=== PATIENT | male | born 1960 | race Hispanic/Latino ===

== ENCOUNTER 2017-04-18 02:22 | Emergency (ER) | payer MEDICARE ==
[2017-04-18 02:23] VITALS: BMI 31.7
[2017-04-18 02:31] VITALS: RESP 16; TEMP 97.5
[2017-04-18 02:40] VITALS: BP 138/46; PULSE 87; O2SAT 97
--- NOTE | 2017-04-18 03:18 | ED PDOC ---
HPI: General Adult Time Seen by Provider: 04/18/17 02:37 Chief Complaint (Nursing): Shortness Of Breath Chief Complaint (Provider): Shortness Of Breath History Per: Patient History/Exam Limitations: no limitations Onset/Duration Of Symptoms: Hrs Have you had recent travel within the past 21 days to any of the following countries: [place], [place], [place] or [place]?: No Current Symptoms Are (Timing): Still Present Severity: Mild Additional Complaint(s): 57 y/o male presenting to the ED with shortness of breath and anxiety. Patient was brought in by police and he is currently under arrest. 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 He denies chest pain, suicidal ideation or homicidal ideation. Past Medical History Reviewed: Historical Data, Nursing Documentation, Vital Signs Vital Signs: Last Vital Signs Temp 97.5 F L 04/18/17 02:29 Pulse 87 04/18/17 02:40 Resp 16 04/18/17 02:40 BP 138/46 L 04/18/17 02:40 Pulse Ox 97 04/18/17 03:20 - Medical History PMH: Asthma, HTN, TIA (MINI-STROKE) Denies: Alzheimer's Disease, Bronchitis, Cardia Arrhythmia, CHF, COPD, Dementia, Emphysema, Fibromyalgia, Hypercholesterolemia, Hyperthyroidism, Hypothyroidism, Migraine, Mitral Valve Prolapse, Multiple Sclerosis, Parkinson' s Disease, Peripheral Edema, Pneumonia, Pulmonary Embolism, Chronic Kidney Disease, Seizures, Sleep Apnea - Surgical History Surgical History: No Surg Hx - Family History Family History: States: Unknown Family Hx - Immunization History Hx Tetanus Toxoid Vaccination: Yes - Home Medications Home Medications: Ambulatory Orders Medication Instructions Recorded Acetaminophen/Oxycodone Hydr 5 - 325 mg PO PRN PRN 06/13/14 [Oxycodone/APAP 325 mg-5 mg] Carvedilol [Coreg] 6.25 mg PO BID 06/13/14 Clopidogrel [Plavix] 75 mg PO DAILY 06/13/14 GlipiZIDE SR [Glucotrol XL] 5 mg PO DAILY 06/13/14 MetFORMIN [glucoPHAGE] 1,000 mg PO BID 06/13/14 Simvastatin 40 mg PO DAILY 06/13/14 Clindamycin [Cleocin] 300 mg PO TID #21 cap 07/10/14 Clindamycin [Cleocin] 300 mg PO TID 5 Days 04/21/15 - Allergies Allergies/Adverse Reactions: Allergies Allergy/AdvReac Type Severity Reaction Status Date / Time Penicillins Allergy ANAPHYLAXIS Verified 04/18/17 02:29 Review of Systems ROS Statement: Except As Marked, All Systems Reviewed And Found Negative Cardiovascular: Negative for: Chest Pain Respiratory: Positive for: Shortness of Breath Psych: Positive for: Anxiety ((-)Suicidal or Homicidal Ideation) Physical Exam - Reviewed Nursing Documentation Reviewed: Yes Vital Signs Reviewed: Yes - Physical Exam Appears: Positive for: Non-toxic, No Acute Distress Head Exam: Positive for: ATRAUMATIC, NORMAL INSPECTION, NORMOCEPHALIC Skin: Positive for: Normal Color, Warm, Dry Cardiovascular/Chest: Positive for: Regular Rate, Rhythm. Negative for: Murmur Respiratory: Positive for: Normal Breath Sounds. Negative for: Wheezing, Respiratory Distress Neurologic/Psych: Positive for: Alert, Oriented, Mood/Affect ((+)Appear Anxious) . Negative for: Motor/Sensory Deficits - ECG O2 Sat by Pulse Oximetry: 97 (RA) Pulse Ox Interpretation: Normal Medical Decision Making Medical Decision Making: Time: 0256 Initial impression: Anxiety Initial plan: --LORAZEPAM 0.5MG PO ONCE 330 Pt. stable for incarceration Scribe Attestation: Documented by Meghan Colin, acting as a scribe for Shilo Salas MD. Scribe Attestation: All medical record entries made by the Scribe were at my direction and personally dictated by me. I have reviewed the chart and agree that the record accurately reflects my personal performance of the history, physical exam, medical decision making, and the department course for this patient. I have also personally directed, reviewed, and agree with the discharge instructions and disposition. Disposition - Clinical Impression Clinical Impression: Anxiety - Disposition Referrals: [facility], [facility] [Outside] Disposition Time: 03:30 Condition: STABLE Additional Instructions: Patient is medically and psychiatrically cleared for incarceration. Instructions: Anxiety (ED) Forms: [employer] (Mongolian)
== END 2017-04-18 04:11 | disposition home or self-care (01) ==
LOC: H.ER 02:22
DX: F41.9 Anxiety disorder, unspecified (principal)

== ENCOUNTER 2018-11-09 11:02 | Observation (INO) | payer MEDICARE ==
[2018-11-09 11:02] VITALS: BMI 31.7
[2018-11-09] MEDS ORDERED: Sodium Chloride 0.9% 1,000 ML IV STA ×2 (12:15→15:43)
--- NOTE | 2018-11-09 12:39 | ED PDOC ---
HPI: General Adult Time Seen by Provider: 11/09/18 11:40 Chief Complaint (Nursing): Dizziness/Lightheaded Chief Complaint (Provider): Dizziness History Per: Patient History/Exam Limitations: no limitations Onset/Duration Of Symptoms: Days, Intermittent Episodes Current Symptoms Are (Timing): Better Additional Complaint(s): 58 year old diabetic male with history of anxiety presents to the ED for an evaluation of dizziness onset last night. Patient reports of dizziness onset for 3 to 4 months and states of the room spinning ; no floaters or blurry vision. His sugar here is greater than 500 and on review of system he notes he has frequent urination. He denies fever, vomiting, diarrhea, cough. Currently, he states he feels somewhat better in the ED. He was sent from the clinic for evaluation in the ER. He states he is only taking pills for diabetes, not insulin. he had been on insulin a year ago, but never really followed up. PMD: Hamilton Tripathi Past Medical History Reviewed: Historical Data, Nursing Documentation, Vital Signs Vital Signs: Last Vital Signs Temp 97.8 F 11/09/18 11:12 Pulse 105 H 11/09/18 11:12 Resp 18 11/09/18 11:12 BP 136/88 11/09/18 11:12 Pulse Ox 100 11/09/18 11:12 - Medical History PMH: Asthma, Diabetes, HTN, TIA (MINI-STROKE) Denies: Alzheimer's Disease, Bronchitis, Cardia Arrhythmia, CHF, COPD, Dementia, Emphysema, Fibromyalgia, Hypercholesterolemia, Hyperthyroidism, Hypothyroidism, Migraine, Mitral Valve Prolapse, Multiple Sclerosis, Parkinson's Disease, Peripheral Edema, Pneumonia, Pulmonary Embolism, Chronic Kidney Disease, Seizures, Sleep Apnea - Surgical History Surgical History: No Surg Hx - Family History Family History: States: Unknown Family Hx - Social History Current smoker - smoking cessation education provided: No Alcohol: None 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) - Immunization History Hx Tetanus Toxoid Vaccination: Yes - Home Medications Home Medications: Ambulatory Orders Medication Instructions Recorded RX: metFORMIN [glucOPHAGE] 500 mg PO BID #20 tab 11/09/18 - Allergies Allergies/Adverse Reactions: Allergies Allergy/AdvReac Type Severity Reaction Status Date / Time Penicillins Allergy ANAPHYLAXIS Verified 04/18/17 02:29 Review of Systems ROS Statement: Except As Marked, All Systems Reviewed And Found Negative Constitutional: Negative for: Fever Gastrointestinal: Negative for: Vomiting, Diarrhea Genitourinary Male: Positive for: Frequency Neurological: Positive for: Dizziness Psych: Positive for: Depression. Negative for: Suicidal ideation, Other (homicidal ideation) Physical Exam - Reviewed Nursing Documentation Reviewed: Yes Vital Signs Reviewed: Yes - Physical Exam Appears: Positive for: Non-toxic, No Acute Distress Head Exam: Positive for: ATRAUMATIC, NORMAL INSPECTION, NORMOCEPHALIC Skin: Positive for: Normal Color, Warm, Dry Eye Exam: Positive for: EOMI, Normal appearance, PERRL ENT: Positive for: Normal ENT Inspection Neck: Positive for: Normal, Painless ROM Cardiovascular/Chest: Positive for: Regular Rate, Rhythm. Negative for: Murmur Respiratory: Positive for: Normal Breath Sounds. Negative for: Decreased Breath Sounds, Respiratory Distress Gastrointestinal/Abdominal: Positive for: Normal Exam, Soft. Negative for: Tenderness Back: Positive for: Normal Inspection Extremity: Positive for: Normal ROM. Negative for: Tenderness, Pedal Edema, Deformity Neurologic/Psych: Positive for: Alert, Oriented (x3). Negative for: Motor/Sensory Deficits - Laboratory Results Result Diagrams: 11/09/18 12:30 11/09/18 12:30 - ECG ECG: Positive for: Interpreted By Me, Viewed By Me ECG Rhythm: Positive for: Sinus Rhythm Interpretation Of ECG: possible left atrial enlargement Rate: 100 O2 Sat by Pulse Oximetry: 100 (RA) Pulse Ox Interpretation: Normal Medical Decision Making Medical Decision Making: Time: 1214 Plan: HYPERGLYCEMIA, and DIZZINESS rule out electrolyte abnormality, infection --CMP --EKG --CBC w/ Differential --Chest two views [RAD] --Normal Saline 999 mls/hr --Urine C&S --alarm security or surveillance monitor --Urinalysis --Reevaluation EKG: normal sinus rhythm with 100bpm and possible left atrial enlargement. 1400 CXR FINDINGS: LUNGS: No active pulmonary disease. PLEURA: No significant pleural effusion identified. No pneumothorax apparent. CARDIOVASCULAR: No aortic atherosclerotic calcification present. No radiographic findings to suggest acute or significant cardiovascular disease. OSSEOUS STRUCTURES: No significant abnormalities. VISUALIZED UPPER ABDOMEN: Normal. OTHER FINDINGS: None. IMPRESSION: No active disease. No significant interval change compared to the prior examination(s). Anion GAP is 12, urine negative, CXR presents no abnormalities. [address] Sandy for symptomatic hyperglycemia. Scribe Attestation: Documented by Waldemar Santana, acting as a scribe for Claudia Bunn MD. Provider Scribe Attestation: All medical record entries made by the Scribe were at my direction and personally dictated by me. I have reviewed the chart and agree that the record accurately reflects my personal performance of the history, physical exam, medical decision making, and the department course for this patient. I have also personally directed, reviewed, and agree with the discharge instructions and disposition. Disposition - Clinical Impression Clinical Impression: Hyperglycemia - Patient ED Disposition Is Patient to be Admitted: Yes - Disposition Disposition Time: 15:46 Condition: STABLE Patient Signed Over To: Geetha Marroquin
[2018-11-09 12:57] LABS: URINE BILIRUBIN NEGATIVE (NEGATIVE); URINE BLOOD NEGATIVE (NEGATIVE); URINE CLARITY CLEAR (Clear); URINE COLOR STRAW (YELLOW); URINE GLUCOSE (UA) >=500 mg/dL (NEGATIVE); URINE LEUKOCYTE ESTERASE NEG Leu/uL (Negative); URINE PROTEIN NEGATIVE (NEGATIVE); URINE UROBILINOGEN 0.2-1.0 mg/dL (0.2-1.0)
[2018-11-09 13:00] LABS: BASO # 0.1 K/uL (0.0-0.2); BASO % 0.6 % (0.0-2.0); EOS # 0.1 K/uL (0.0-0.7); EOS % 0.9 % (0.0-4.0); HEMOGLOBIN 15.8 g/dL (12.0-18.0); LYMPH # 2.4 K/uL (1.0-4.3); LYMPH % 24.4 % (20.0-40.0); MEAN CORPUSCULAR HEMOGLOBIN 26.2 pg (27.0-31.0); MEAN CORPUSCULAR HGB CONC 32.7 g/dL (33.0-37.0); MEAN PLATELET VOLUME 10.6 fl (7.2-11.7); MONO # 0.8 K/uL (0.0-0.8); MONO % 8.2 % (0.0-10.0); NEUT # 6.4 K/uL (1.8-7.0); NEUT % 65.9 % (50.0-75.0); RBC 6.02 Mil/uL (4.40-5.90); RED CELL DISTRIBUTION WIDTH 14.5 % (11.5-14.5); WHITE BLOOD COUNT 9.8 K/uL (4.8-10.8)
[2018-11-09 13:08] LABS: ALB/GLOB RATIO 1.5 (1.0-2.1); ALBUMIN 4.2 g/dL (3.5-5.0); ALT/SGPT 28 U/L (21-72); AST/SGOT 17 U/L (17-59); BLOOD UREA NITROGEN 19 mg/dl (9-20); CALCIUM 9.8 mg/dL (8.4-10.2); GFR NON-AFRICAN AMERICAN > 60
--- NOTE | 2018-11-09 13:57 | RAD ---
Date of service: 11/09/2018 HISTORY: hyperglycemia COMPARISON: 06/13/2014 TECHNIQUE: Chest PA and lateral FINDINGS: LUNGS: No active pulmonary disease. PLEURA: No significant pleural effusion identified. No pneumothorax apparent. CARDIOVASCULAR: No aortic atherosclerotic calcification present. No radiographic findings to suggest acute or significant cardiovascular disease. OSSEOUS STRUCTURES: No significant abnormalities. VISUALIZED UPPER ABDOMEN: Normal. OTHER FINDINGS: None. IMPRESSION: No active disease. No significant interval change compared to the prior examination(s).
[2018-11-09] MEDS ORDERED: Insulin Regular 100 units/ml SC STA (15:21)
[2018-11-09] MEDS ORDERED: Insulin Regular 100 units/ml ONE (15:48)
--- NOTE | 2018-11-09 17:48 | ED PDOC ---
- Laboratory Results Result Diagrams: 11/09/18 12:30 11/09/18 12:30 Lab Results: Total Bilirubin 0.6 mg/dl (0.2-1.3) 11/09/18 12:30 AST 17 U/L (17-59) 11/09/18 12:30 ALT 28 U/L (21-72) 11/09/18 12:30 Alkaline Phosphatase 82 U/L (38-126) 11/09/18 12:30 Total Protein 6.9 G/DL (6.3-8.2) 11/09/18 12:30 Albumin 4.2 g/dL (3.5-5.0) 11/09/18 12:30 Globulin 2.7 gm/dL (2.2-3.9) 11/09/18 12:30 Albumin/Globulin Ratio 1.5 (1.0-2.1) 11/09/18 12:30 Urine Color Straw (YELLOW) 11/09/18 12:30 Urine Clarity Clear (Clear) 11/09/18 12:30 Urine pH 6.0 (5.0-8.0) 11/09/18 12:30 Ur Specific [place] 1.033 (1.003-1.030) H 11/09/18 12:30 Urine Protein Negative mg/dL (NEGATIVE) 11/09/18 12:30 Urine Glucose (UA) >=500 mg/dL (NEGATIVE) 11/09/18 12:30 Urine Ketones Negative mg/dL (NEGATIVE) 11/09/18 12:30 Urine Blood Negative (NEGATIVE) 11/09/18 12:30 Urine Nitrate Negative (NEGATIVE) 11/09/18 12:30 Urine Bilirubin Negative (NEGATIVE) 11/09/18 12:30 Urine Urobilinogen 0.2-1.0 mg/dL (0.2-1.0) 11/09/18 12:30 Ur Leukocyte Esterase Neg [place]/uL (Negative) 11/09/18 12:30 Urine RBC (Auto) 3 /hpf (0-3) 11/09/18 12:30 Urine Microscopic WBC < 1 /hpf (0-5) 11/09/18 12:30 - ECG O2 Sat by Pulse Oximetry: 100 (RA) Pulse Ox Interpretation: Normal Medical Decision Making Medical Decision Makin Patient evaluated by Dr. Sandy in ED, who states patient can be discharged home. Follow up appointment created with FP resident. Patient informed of plan and is agreeable to be discharged home. Scribe Attestation: Documented by Dior Perera acting as a scribe for Geetha Marroquin MD. Provider Attestation: All medical record entries made by the Scribe were at my direction and personally dictated by me. I have reviewed the chart and agree that the record accurately reflects my personal performance of the history, physical exam, medical decision making, and the department course for this patient. I have also personally directed, reviewed, and agree with the discharge instructions and disposition. Disposition Counseled Patient/Family Regarding: Studies Performed, Diagnosis, Need For Fol lowup - Clinical Impression Clinical Impression: Hyperglycemia - POA Present On Arrival: Poor Glycemic Control - Disposition Disposition: Routine/Home Disposition Time: 17:00 Condition: STABLE
[2018-11-09 18:20] VITALS: RESP 17
[2018-11-09 18:21] VITALS: BP 130/70; TEMP 97.1
--- NOTE | 2018-11-09 22:26 | CARD ---
APPROVED REPORT Date of service: 11/09/2018 EKG Measurement Heart [id number] <Conclusion> Normal sinus rhythm Possible Left atrial enlargement Borderline ECG
[2018-11-10 10:55] VITALS: PULSE 100; O2SAT 100
== END 2018-11-09 18:55 | disposition home or self-care (01) ==
LOC: H.ER 11:02 → H.ERHOLD 15:46
PROVIDERS: ADMIT Hospitalist; ATTEND Hospitalist
DX: E11.65 Type 2 diabetes mellitus with hyperglycemia (principal); I10 Essential (primary) hypertension; J45.909 Unspecified asthma, uncomplicated; Z86.73 Personal history of transient ischemic attack (TIA), and cerebral infarction without residual deficits; F32.9 Major depressive disorder, single episode, unspecified; F41.9 Anxiety disorder, unspecified; Z88.0 Allergy status to penicillin
CPT/HCPCS: 71046; 80053; 81003; 82948; 85025; 87086; 93005; 96360; 99284; G0378; J7030